=== PATIENT | female | born 1970 | race Caucasian/White ===

== ENCOUNTER 2018-01-14 11:19 | Emergency (ER) | payer BC ==
[~2018-01-14] VITALS: Ht 165.1 cm; Wt 54.4 kg
--- NOTE | 2018-01-14 12:21 | Emergency Room Report ---
History of Present Illness General Chief Complaint: Flu Like Symptoms Source: Patient Present Illness HPI Patient is a 48-year-old female with a history of asthma who presents today with cough that began 2 weeks ago. Patient states she has been using her albuterol inhaler more than usual recently. Patient states she has been traveling recently and completed a course of amoxicillin a week and a half ago with minimal improvement. Patient denies fever, chills or associated symptoms. She denies tobacco, alcohol or drug use. Allergies: Coded Allergies: No Known Allergies (Unverified , 01/14/18) Patient History Reviewed Nursing Documentation: PMH: Agreed; PSxH: Agreed Nursing Documentation-PM Past Medical History: No History, Except For Hx Asthma: Yes Review of Systems Respiratory: Reports: cough All Other Systems: negative except mentioned in HPI Physical Exam Vital Signs Date Time Temp Pulse Resp B/P (MAP) Pulse Ox O2 Delivery O2 Flow Rate FiO2 01/14/18 11:42 97.9 112 20 150/106 99 Room Air 97.9 Sp02 EP Interpretation: reviewed, normal General Appearance: no apparent distress, alert, GCS 15, non-toxic Head: normocephalic, atraumatic Eyes: bilateral eye normal inspection, bilateral eye PERRL ENT: hearing grossly normal, normal pharynx, no angioedema, normal voice Neck: full range of motion, supple/symm/no masses Respiratory: chest non-tender, lungs clear, normal breath sounds, speaking full sentences Cardiovascular #1: regular rate, rhythm, no edema Cardiovascular #2: 2+ carotid (R), 2+ carotid (L), 2+ radial (R), 2+ radial (L) , 2+ dorsalis pedis (R), 2+ dorsalis pedis (L) Gastrointestinal: normal bowel sounds, non tender, soft, non-distended, no guarding, no rebound Rectal: deferred Genitourinary: normal inspection, no CVA tenderness Musculoskeletal: back normal, gait/station normal, normal range of motion, non- tender, calf tenderness Neurologic: alert, oriented x3, responsive, motor strength/tone normal, sensory intact, speech normal Psychiatric: judgement/insight normal, memory normal, mood/affect normal, no suicidal/homicidal ideation Reflexes: 3+ bicep (R), 3+ bicep (L), 3+ tricep (R), 3+ tricep (L), 3+ knee (R) , 3+ knee (L) Skin: normal color, no rash, warm/dry, well hydrated Lymphatic: no adenopathy Medical Decision Making PA Attestation Supervising physician is Dr. Rosen Reaction to Intervention: Improved Diagnostic Impression: Primary Impression: Productive cough ER Course Findings consistent with productive cough. A chest x-ray is within normal limits. We'll treat patient empirically with antibiotics based on duration and severity of symptoms. We'll also treat patient with a short course of prednisone and albuterol inhaler. Patient is instructed to follow up with PCP for further evaluation and management. Patient understands and is agreeable with plan. Chest X-Ray Diagnostic Results Chest X-Ray Diagnostic Results : Chest X-Ray Ordered: Yes # of Views/Limited/Complete: 1 View Indication: Other - cough EP Interpretation: Yes PA Xray: Interpretation reviewed, by supervising MD, and agrees with findings. Interpretation: no consolidation, no effusion, no pneumothorax, no acute cardiopulmonary disease Impression: No acute disease Electronically Signed by: EMMANUEL ROBERTO Reevaluation Time: 13:30 Last Vital Signs Date Time Temp Pulse Resp B/P (MAP) Pulse Ox O2 Delivery O2 Flow Rate FiO2 01/14/18 11:42 97.9 112 20 150/106 99 Room Air 97.9 Status: improved Disposition: HOME, SELF-CARE Condition: Stable Scripts Fluconazole (FLUCONAZOLE) 100 Mg Tablet 100 MG ORAL DAILY, #1 TAB 0 Refills Prov: Katerin Mathis P.A. 01/14/18 Prednisone (Prednisone) 20 Mg Tablet 20 MG PO BID for 4 Days, #8 TAB Prov: Katerin Mathis P.A. 01/14/18 Albuterol Sulfate (VENTOLIN HFA) 18 Gm Hfa.aer.ad 1 PUFF INH EVERY 6 HOURS, #18 GM 0 Refills Prov: DelKaterin P.A. 01/14/18 Azithromycin* (ZITHROMAX*) 250 Mg Tablet 250 MG ORAL DAILY for 5 Days, #6 TAB Prov: DelKaterin P.A. 01/14/18 Patient Instructions: Cough, Adult, [id number] Katerin Mathis.ABhupendra Jan 14, 2018 12:21
--- NOTE | 2018-01-14 13:04 | Diagnostic Imaging Report ---
Indication: Cough Technique: XRAY Chest 1v Comparison: None Findings: Heart size and mediastinal contours are within normal limits given technique. There is no focal consolidation, pneumothorax or pleural effusion. Osseous structures demonstrate no acute abnormality. IMPRESSION: No radiographic evidence of acute cardiopulmonary disease. No focal airspace consolidation.
[2018-01-14] MEDS ORDERED: AZITHROMYCIN250 MG ORAL (13:32)
[2018-01-14] MEDS ORDERED: VENTOLIN HFA18 GM INH (13:32)
[2018-01-14] MEDS ORDERED: PREDNISONE20 M1 PO (13:32)
[2018-01-14] MEDS ORDERED: FLUCONAZOLE100 MG ORAL (13:41)
[2018-01-14 13:44] VITALS: BP 150/106
== END 2018-01-14 13:34 | disposition home or self-care (01) ==
LOC: EMR 12:02
DX: R05 Cough (principal); J45.909 Unspecified asthma, uncomplicated
CPT/HCPCS: 71045; 99284

== ENCOUNTER 2020-01-03 08:46 | Emergency (ER) | payer SELFPAY ==
[~2020-01-03] VITALS: Ht 167.6 cm; Wt 68.0 kg
[~2020-01-03 08:46] MED LIST: AZITHROMYCIN250 MG ORAL; FLUCONAZOLE100 MG ORAL; PREDNISONE20 M1 PO; VENTOLIN HFA18 GM INH
[2020-01-03 08:50] VITALS: BP 107/60
[2020-01-03] MEDS ORDERED: Ketorolac 30mg Inj IM ONE (09:00)
[2020-01-03] MEDS ORDERED: Morphine Sulfate 2mg/ml Inj(IV/IM USE ONLY) IM ONE (09:00)
--- NOTE | 2020-01-03 09:01 | Emergency Room Report ---
History of Present Illness General Chief Complaint: Pain Source: EMS Present Illness HPI Disclaimer: Please note that this report is being documented using DRAGON technology. This can lead to erroneous entry secondary to incorrect interpretation by the dictating instrument. HPI: 49-year-old female presents for evaluation of right knee pain. Reports 10/ 10 sharp and throbbing pain over the medial lateral component of the right knee beginning this morning. Went to sleep in her usual state of health. Denies swelling, redness. Denies bending, twisting or injuring the knee in any way. No prior history of gout, arthritis or any prior issues with her knee. She is a formal ballerina. Denies pain or swelling of the calf, use of hormones, prior DVT. Denies numbness, tingling. States the pain radiates from the medial lateral aspect of the knee down the leg sometimes. Denies pain in the hip. Able to bear weight and is ambulating with a limp. Has not taken any medication prior to arrival. PMH: Denies PSH: Denies Allergies: Denies Social Hx: Denies Allergies: Coded Allergies: No Known Allergies (Unverified , 01/14/18) COVID-19 Screening Contact w/high risk pt: No Recent Travel to affected area: No Experienced COVID-19 symptoms?: No Nursing Documentation-PMH Past Medical History: No History, Except For Hx Asthma: Yes Review of Systems All Other Systems: negative except mentioned in HPI Physical Exam Vital Signs Date Time Temp Pulse Resp B/P (MAP) Pulse Ox O2 Delivery O2 Flow Rate FiO2 01/03/20 08:36 97.9 63 17 107/60 (76) 98 Room Air General: Awake and alert, appears uncomfortable HEENT: NC/AT. EOMI. Resp: Normal work of breathing Skin: Intact. No abrasions, laceration or rash over the exposed skin MSK: Normal tone and bulk. Moving all extremities. No obvious deformity. There is no edema, erythema or deformity noted in either knee. Patient is able to fully flex and extend the knees bilaterally. Full range of motion in the pelvis and ankles. Patella is in anatomic position without tenderness. Moderate tenderness palpation over the medial and lateral aspect of the right knee again without swelling, overlying skin changes or fluctuance. No laxity on Wolfgang testing. No laxity on varus and valgus stressing. No pulsatile masses noted in the posterior fossa. Preserved distal perfusion. Full range of motion in the feet and ankles. Calves are soft, symmetrical, nontender. Neuro: Awake and alert. Mentating appropriately. Sensation intact over the lower extremities bilaterally. Medical Decision Making Diagnostic Impression: Primary Impression: Knee pain ER Course 49-year-old female presenting for evaluation of sudden onset atraumatic right knee pain beginning this morning. She appears uncomfortable but able to bear weight, good range of motion in the lower extremities. Differential includes was not limited to occult injury, sprain, strain, arthritis, meniscal injury, gout, rheumatic disease. X-ray was obtained shows does not show acute fracture , dislocation or significant effusion/soft tissue changes. May be a ligamentous or meniscal injury. Patient will be put in a Zhen wrap and given crutches for stability. She is able to bear weight and is ambulatory in the emergency department walking to the bathroom on her own with a steady gait. Little clinical concern for septic arthritis, gouty arthritis, DVT or other significant pathology at this time; do not believe she requires emergent labs or advanced imaging. She will follow-up with orthopedic surgery and PMD. Return precautions discussed. Other X-Ray Diagnostic Results Other X-Ray Diagnostic Results : X-Ray ordered: Right knee # of Views/Limited Vs Complete: Complete Indication: Pain EP Interpretation: Yes Interpretation: no dislocation, no soft tissue swelling, no fractures Impression: No acute disease Electronically Signed by: Electronically signed by Dr. Ke Marcos Last Vital Signs Date Time Temp Pulse Resp B/P (MAP) Pulse Ox O2 Delivery O2 Flow Rate FiO2 01/03/20 08:36 97.9 63 17 107/60 (76) 98 Room Air Disposition: HOME, SELF-CARE Condition: Stable Scripts Ibuprofen* (MOTRIN*) 600 Mg Tablet 600 MG ORAL Q6H PRN for For Pain, #30 TAB 0 Refills Prov: Ke Marcos MD 01/03/20 Ke Marcos MD Jan 03, 2020 09:01
[2020-01-03] MEDS ORDERED: IBUPROFEN600 M1 ORAL (09:41)
[2020-01-03 10:01] VITALS: BP 110/60
--- NOTE | 2020-01-03 10:42 | Diagnostic Imaging Report ---
Indication: Pain, trauma Technique: 3 views of the right knee Comparison: None Findings: No acute fractures. No dislocations. The joint spaces are preserved. Impression: Negative
== END 2020-01-03 10:13 | disposition home or self-care (01) ==
LOC: EDBD 08:46 → EMR 09:06
DX: M25.561 Pain in right knee (principal)
CPT/HCPCS: 73562; 96372; 99283; J1885; J2270